=== PATIENT | male | born 1970 | race Caucasian/White ===

== ENCOUNTER → 2018-09-28 | Day surgery (SDC) | payer OTHER ==
[~2018-09-28] MED LIST: CIPROFLOXACIN500 M1 PO; FLOMAX0.4 MG PO; PERCOCET 5-3251 EACH PO; TRAMADOL 50 MG50 MG PO; ZOFRAN4 MG PO; [UNRECOGNIZED DRUG - OTHER] PO
--- NOTE | ~2018-09-28 | OP ---
[address] [address] OPERATIVE REPORT Name: LISETTE GAVIRIA JR Room: [facility]#: [id number] Admission: 09/28/18 Attend Phys: Bruno Price DO Discharge: Date of : 66 Report #: [id number] THIS REPORT FOR: //name// CC: Bruno Lowe DO DICTATED BY: Brian Mercedes DO DATE OF SERVICE: 09/28/2018 PREOPERATIVE DIAGNOSIS: Incisional hernia. POSTOPERATIVE DIAGNOSIS: Incisional hernia. SURGEON: Bruno Price DO CO-SURGEON: Brian Mercedes, PGY-3 TODDLER NANNY: BARBARA Woodruff student. PROCEDURE PERFORMED: Incisional hernia repair with mesh. ANESTHESIA: General. ESTIMATED BLOOD LOSS: 10 mL. SPECIMEN REMOVED: Hernia sac. COMPLICATIONS: None. CONDITION: Stable. DISPOSITION: PACU to home. INDICATIONS FOR PROCEDURE: The patient is a 48-year-old male, who presented to clinic with complaint of an incisional hernia. He was having pain at the hernia site, which was confirmed by ultrasound, but no nausea, vomiting, or obstructive symptoms. He was informed about the risks and benefits of incisional hernia repair and decided to proceed with surgery. DESCRIPTION OF PROCEDURE: After informed consent was obtained, the patient was brought to the operating room and placed in the supine position. General anesthesia was administered. Preoperative antibiotics were delivered. SCDs were on and running prior to induction. The patient was prepped and draped in the usual sterile fashion. Surgical pause was held to confirm proper patient [facility] [address] [place] [address] OPERATIVE REPORT Name: LISETTE GAVIRIA JR Room: [facility].#: [id number] Admission: 09/28/18 Attend Phys: Bruno Price DO Discharge: Date of : 66 Report #: [id number] and procedure. A vertical 3-cm incision was made overlying the hernia in the epigastric region with a #15 blade. Dissection was carried down until the hernia sac was encountered using cautery. The hernia sac was circumferentially dissected free from the surrounding tissue and the fascial edges were identified. The hernia was containing fat only and was amputated with the sac. This was passed off as the specimen. The fascial edges were further developed and the frayed edges were excised. There was a very small defect that was smaller than the tip of a finger that could be introduced, 7 mm in size. A 4.3 cm chitimacha mesh Ventralex ST was selected, hydrated in saline, and brought onto the field. It was introduced into the abdomen and deployed adequately. A pickup was inserted through the straps to ensure adequate deployment circumferentially. The straps were then cut from the mesh and it was secured in place to the fascia in a horizontal fashion using 2 interrupted 0 Prolene sutures. The defect was palpated and noted to be adequately closed. Wound was then closed in layered fashion using 2-0 Vicryl, 3-0 Vicryl, and 4-0 Monocryl. Wound was cleansed and dressed with Mastisol, Steri-Strips, Tegaderm, and an overlying pressure dressing. Marcaine 0.5% was injected prior to dressings being applied. The patient tolerated the procedure well, was emerged from anesthesia, and transferred to the PACU in stable condition. All counts were correct at the close of the case. By: 1125 1141Agela Price DO /nt
--- NOTE | 2018-09-30 12:09 | PATH ---
[facility] [address] [place] [address] PATHOLOGY RPT PROCEDURE Name: AUGUST GAVIRIA JR Room: [facility]#: [id number] Admission: 09/28/18 Date of : 66 Discharge: Report #: [id number] Path Case #: [id number] [facility] Accession Number: [id number] . 01 Material submitted: . hernia - HERNIA SAC . 01 Clinician provided ICD-10: y . 01 Clinical history: . Incisional hernia . 02 Diagnosis: Hernia sac: - Benign mesothelial-lined fibromembranous / fibrofatty tissue. . (KODI:mml; 09/29/2018) QLM/09/29/2018 . 02 Electronically signed: . Chung Pabon MD, Pathologist NPI- [id number] . 01 Gross description: . The specimen is received in formalin, labeled "Cook JR, August, hernia sac", is an irregular fragment of fibroadipose, fibromembranous tissue measuring 3.0 x 2.0 x 1.2 cm. No discrete nodules or masses identified. [employer] tissue is submitted in A1. (SWS; 09/28/2018) SHS/SHS . 02 Pathologist provided ICD-10: K43.2 . 02 CPT . 897449 Specimen Comment: A courtesy copy of this report has been sent to Specimen Comment: [phone], . Specimen Comment: Report sent to / DR GOLD Performed at: [address], [place], [place] [id number] MD Gerry Garcia MD Phone: [phone] Performed at: 02 [facility] [address], [place], [place] [id number] MD Chung Pabon MD Phone: [phone]
== END | disposition home or self-care (01) ==
LOC: M.SUR 09:16
DX: K43.0 Incisional hernia with obstruction, without gangrene (principal); Z88.8 Allergy status to other drugs, medicaments and biological substances; Z88.6 Allergy status to analgesic agent

== ENCOUNTER 2020-02-06 05:06 | Emergency (ER) | payer OTHER ==
[~2020-02-06] VITALS: Ht 170.2 cm; Wt 90.7 kg
[2020-02-06] MEDS ORDERED: GABAPENTIN (05:14)
[2020-02-06 05:35] LABS: ABSOLUTE BASOPHILS 0.1 thou/uL (0.0-0.2); ABSOLUTE EOSINOPHILS 0.2 thou/uL (0.0-0.7); ABSOLUTE LYMPHOCYTES 1.6 thou/uL (0.8-5.3); ABSOLUTE MONOCYTES 0.7 thou/uL (0.0-1.2); ABSOLUTE NEUTROPHILS 2.9 thou/uL (1.6-8.1); EOSINOPHILS 2.9 %; HEMATOCRIT 44.4 % (42.0-52.0); HEMOGLOBIN 14.9 gm/dL (14.0-18.0); LYMPHOCYTES 29.3 %; MCHC 33.5 g/dL (28.0-37.0); MCV 86.6 fL (80.0-100.0); MONOCYTES 13.3 %; MPV 8.2 fl. (7.2-11.1); NUCLEATED RBCS 0 /100WBC; PLATELET COUNT* 227 thou/uL (150-400); POLYS 53.5 %; RBC 5.12 mil/uL (4.50-6.00); RDW-CV 14.3 % (10.5-14.5); WBC 5.5 thou/uL (4.0-11.0)
[2020-02-06 05:41] LABS: CALCIUM 8.9 mg/dL (8.5-10.1); CREATININE 1.2 mg/dL (0.6-1.3); POTASSIUM 4.1 mmol/L (3.5-5.1)
[2020-02-06 05:51] LABS: APTT 27.8 Seconds (25.0-31.3); PROTIME 10.5 Seconds (9.20-11.50)
[2020-02-06 05:54] LABS: ALBUMIN 3.9 g/dL (3.4-5.0); MAGNESIUM 1.8 mg/dL (1.8-2.4); TOTAL BILIRUBIN 0.4 mg/dL (<0.1-1.0); TOTAL PROTEIN 7.1 g/dL (6.4-8.2)
[2020-02-06 07:45] VITALS: BP 114/68
[2020-02-06] MEDS ORDERED: CARAFATE 1 GM TA1 GM PO (07:53)
--- NOTE | 2020-02-06 17:55 | EKG ---
[place] [address] ELECTROCARDIOGRAM REPORT Name: LISETTE GAVIRIA JR Room: [facility]#: [id number] Admission: 02/06/20 Attend Phys: Discharge: 02/06/20 Date of : 66 Date of Service: 02/06/20 0510 Report #: [id number] THIS REPORT FOR: //name// [facility] ED Test Date: 2020-02-06 Test Time: 05:10:50 Pat Name: LISETTE GAVIRIA Department: Room: Gender: Master Planner: : 1970 Requested By: Messi Norton Order Number: [id number] MD: Malik Cordova Measurements Intervals [place] Rate: 62 P: 50 AK: 172 QRS: 60 QRSD: 95 T: 21 QT: 389 QTc: 395 Interpretive Statements Sinus rhythm Baseline wander in lead(s) II,III,aVF No previous ECG available for comparison Electronically Signed On 02-06-2020 17:54:55 CDT by Malik Cordova [email or web address] <ELECTRONICALLY SIGNED> By: Malik Cordova MD, [facility] 02/06/20 1754 Malik Cordova MD, FAC /EPI
== END 2020-02-06 07:48 | disposition home or self-care (01) ==
LOC: M.ERS 05:06
PROVIDERS: Family Medicine
DX: R07.89 Other chest pain (principal); Z88.5 Allergy status to narcotic agent; Z91.013 Allergy to seafood; G62.9 Polyneuropathy, unspecified; Z88.6 Allergy status to analgesic agent